=== PATIENT | female | born 1980 | race Caucasian/White ===

== ENCOUNTER 2018-07-11 21:50 | Emergency (ER) | payer SELFPAY ==
[2018-07-11] MEDS ORDERED: NICOTINE 21 MG/24 HR PATCH.TD24 TD ONE (22:37)
[2018-07-11] MEDS ORDERED: DIAZEPAM 5 MG TABLET PO PRN (22:38)
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
[2018-07-11 22:52] LABS: ABSOLUTE BASOPHILS # (AUTO) 0.1 10^3/uL (0.0-0.2); ABSOLUTE EOSINOPHILS # (AUTO) 0.1 10^3/uL (0.0-0.6); ABSOLUTE LYMPHOCYTES (AUTO) 2.5 10^3/uL (0.5-4.7); ABSOLUTE MONOCYTES (AUTO) 0.6 10^3/uL (0.1-1.4); ABSOLUTE NEUT (AUTO) 3.7 10^3/uL (1.7-8.2); BASOPHILS % (AUTO) 0.7 % (0-2); EOSINOPHILS % (AUTO) 1.9 % (0-6); HEMATOCRIT 40.9 % (36.0-47.0); HEMOGLOBIN 14.1 g/dL (12.0-15.5); LYMPHOCYTES % (AUTO) 35.9 % (13-45); MEAN CORPUSCULAR HEMOGLOBIN 28.7 pg (27.0-33.4); MEAN CORPUSCULAR HGB CONC 34.5 g/dL (32.0-36.0); MEAN CORPUSCULAR VOLUME 83 fl (80-97); MONOCYTES % (AUTO) 8.3 % (3-13); PLATELET COUNT 271 10^3/uL (150-450); RED BLOOD COUNT 4.91 10^6/uL (3.72-5.28); RED CELL DISTRIBUTION WIDTH 13.1 % (11.5-14.0); SEGMENTED NEUTROPHILS % (AUTO) 53.2 % (42-78); TOTAL CELLS COUNTED % (AUTO) 100 %; WHITE BLOOD COUNT 7.1 10^3/uL (4.0-10.5)
[2018-07-11 22:55] LABS: ALANINE AMINOTRANSFERASE 16 U/L (9-52); ALBUMIN 4.3 g/dL (3.5-5.0); ALKALINE PHOSPHATASE 62 U/L (38-126); ANION GAP 8 (5-19); ASPARTATE AMINO TRANSFERASE 18 U/L (14-36); BILIRUBIN,DIRECT 0.3 mg/dL (0.0-0.4); BILIRUBIN,TOTAL 0.4 mg/dL (0.2-1.3); BLOOD UREA NITROGEN 13 mg/dL (7-20); CALCIUM 9.5 mg/dL (8.4-10.2); CARBON DIOXIDE 26 mmol/L (22-30); CHLORIDE 109 mmol/L (98-107); GLUCOSE 87 mg/dL (75-110); POTASSIUM 4.3 mmol/L (3.6-5.0); TOTAL PROTEIN 6.9 g/dL (6.3-8.2)
[2018-07-11 22:56] LABS: ACETAMINOPHEN < 10 ug/mL (10-30); ALCOHOL < 10 mg/dL (NONE DETECTED); SALICYLATE < 1.0 mg/dL (2.0-20.0)
[2018-07-12] MEDS ORDERED: ACETAMINOPHEN 325 MG TABLET PO ONE (02:58)
[2018-07-12 03:12] LABS: APPEARANCE,URINE SLIGHTLY-CLOUDY; BILIRUBIN,URINE NEGATIVE (NEGATIVE); COLOR,URINE YELLOW; GLUCOSE, URINE NEGATIVE (NEGATIVE); KETONES,URINE NEGATIVE (NEGATIVE); LEUKOCYTE ESTERASE,URINE NEGATIVE (NEGATIVE); NITRITE,URINE NEGATIVE (NEGATIVE); PROTEIN,URINE NEGATIVE (NEGATIVE); URINE SPECIFIC GRAVITY 1.026
[2018-07-12 03:35] LABS: URINE AMPHETAMINES SCREEN NEGATIVE; URINE BARBITURATES SCREEN NEGATIVE; URINE BENZODIAZEPINES SCREEN UNCONFIRMED POSITIVE; URINE COCAINE SCREEN NEGATIVE; URINE MARIJUANA (THC) SCREEN UNCONFIRMED POSITIVE; URINE METHADONE SCREEN NEGATIVE; URINE PHENCYCLIDINE SCREEN NEGATIVE
--- NOTE | 2018-07-12 10:03 | ER Document Report ---
Doctor's Note Notes: 07/12/18 10:02 Rounds: Chart reviewed and patient interviewed. Patient says she is feeling depressed and suicidal. Lost her job, house, and attempted to cut her left wrist but was unable to because the blade was not sharp. Patient is not currently on any medications. She says at this time she just "want to go home and get some sleep". Vital signs are all normal. Lab studies were normal except for positive marijuana and drug testing. Patient appears to be medically stable for transfer or discharge. Tee Mir MD
[2018-07-12 14:17] VITALS: BP 116/72
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
--- NOTE | 2018-07-12 23:42 | EKG REPORT ---
SEVERITY:- NORMAL ECG - SINUS RHYTHM : Confirmed by: Kamala Fajardo MD 12-Jul-2018 23:41:53
== END 2018-07-12 17:40 | disposition home or self-care (01) ==
LOC: ER 21:50
DX: F32.2 Major depressive disorder, single episode, severe without psychotic features (principal); S60.812A Abrasion of left wrist, initial encounter; X78.8XXA Intentional self-harm by other sharp object, initial encounter; Z59.8 Other problems related to housing and economic circumstances; Z56.0 Unemployment, unspecified; R45.851 Suicidal ideations; Z88.5 Allergy status to narcotic agent; Z88.0 Allergy status to penicillin; F17.210 Nicotine dependence, cigarettes, uncomplicated
CPT/HCPCS: 36415; 80053; 80307; 81001; 81025; 85025; 93005; 93010; 99285

== ENCOUNTER 2018-07-28 14:25 | Emergency (ER) | payer SELFPAY ==
[2018-07-28 15:01] VITALS: BP 117/72
[2018-07-28 15:28] LABS: ABSOLUTE BASOPHILS # (AUTO) 0.1 10^3/uL (0.0-0.2); ABSOLUTE EOSINOPHILS # (AUTO) 0.1 10^3/uL (0.0-0.6); ABSOLUTE LYMPHOCYTES (AUTO) 1.6 10^3/uL (0.5-4.7); ABSOLUTE MONOCYTES (AUTO) 0.4 10^3/uL (0.1-1.4); ABSOLUTE NEUT (AUTO) 4.9 10^3/uL (1.7-8.2); BASOPHILS % (AUTO) 0.8 % (0-2); EOSINOPHILS % (AUTO) 1.2 % (0-6); HEMATOCRIT 40.4 % (36.0-47.0); HEMOGLOBIN 13.9 g/dL (12.0-15.5); MEAN CORPUSCULAR HEMOGLOBIN 28.6 pg (27.0-33.4); MEAN CORPUSCULAR HGB CONC 34.4 g/dL (32.0-36.0); MEAN CORPUSCULAR VOLUME 83 fl (80-97); MONOCYTES % (AUTO) 6.1 % (3-13); PLATELET COUNT 226 10^3/uL (150-450); RED BLOOD COUNT 4.87 10^6/uL (3.72-5.28); RED CELL DISTRIBUTION WIDTH 13.3 % (11.5-14.0); SEGMENTED NEUTROPHILS % (AUTO) 68.9 % (42-78); TOTAL CELLS COUNTED % (AUTO) 100 %; WHITE BLOOD COUNT 7.1 10^3/uL (4.0-10.5)
[2018-07-28 15:33] LABS: APPEARANCE,URINE CLOUDY; BILIRUBIN,URINE NEGATIVE (NEGATIVE); COLOR,URINE YELLOW; GLUCOSE, URINE NEGATIVE (NEGATIVE); KETONES,URINE NEGATIVE (NEGATIVE); LEUKOCYTE ESTERASE,URINE TRACE (NEGATIVE); NITRITE,URINE NEGATIVE (NEGATIVE); PROTEIN,URINE NEGATIVE (NEGATIVE); URINE SPECIFIC GRAVITY 1.012; UROBILINOGEN,URINE NEGATIVE mg/dL (<2.0)
[2018-07-28 15:46] LABS: ALANINE AMINOTRANSFERASE 23 U/L (9-52); ALBUMIN 3.9 g/dL (3.5-5.0); ALKALINE PHOSPHATASE 58 U/L (38-126); ANION GAP 5 (5-19); ASPARTATE AMINO TRANSFERASE 16 U/L (14-36); BILIRUBIN,DIRECT 0.2 mg/dL (0.0-0.4); BILIRUBIN,TOTAL 0.7 mg/dL (0.2-1.3); BLOOD UREA NITROGEN 9 mg/dL (7-20); CARBON DIOXIDE 26 mmol/L (22-30); CHLORIDE 108 mmol/L (98-107); GLUCOSE 85 mg/dL (75-110); POTASSIUM 4.1 mmol/L (3.6-5.0); SODIUM 139.4 mmol/L (137-145); TOTAL PROTEIN 6.5 g/dL (6.3-8.2)
[2018-07-28 15:49] LABS: ACETAMINOPHEN < 10 ug/mL (10-30); ALCOHOL < 10 mg/dL (NONE DETECTED); SALICYLATE < 1.0 mg/dL (2.0-20.0); URINE AMPHETAMINES SCREEN NEGATIVE; URINE BARBITURATES SCREEN NEGATIVE; URINE BENZODIAZEPINES SCREEN NEGATIVE; URINE COCAINE SCREEN NEGATIVE; URINE MARIJUANA (THC) SCREEN UNCONFIRMED POSITIVE; URINE METHADONE SCREEN NEGATIVE; URINE PHENCYCLIDINE SCREEN NEGATIVE
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
--- NOTE | 2018-07-28 23:14 | ER Document Report ---
Entered by JOSÉ FLORES SCRIBE 07/28/18 1449 Acting as scribe for:BLAKE DAVIS DO ED Psych Disorder / Suicide <ERIC CIFUENTES - Last Filed: 07/28/18 16:26> - General Information source: Patient TRAVEL OUTSIDE OF THE [place] IN LAST 30 DAYS: No <BLAKE DAVIS - Last Filed: 07/28/18 23:14> - General Stated Complaint: SI Time Seen by Provider: 07/28/18 14:36 Primary Care Provider: [facility] [Outside] - Follow up as needed [facility] [Outside] - 08/11/18 (You also have medication appointment at [facility] on 08/25/18.) Notes: 37 year old female that presents to the emergency department today with com plaints of "just snapping" prior to arrival. Patient states that over the last few weeks she has "lost her job, house, and power". Patient states she was diagnosed 2 weeks ago with bipolar disorder and depression and was started on a 7-day supply of medications but she does not have any money to buy medication refills. Patient also states that she is unable to get in to see the prescriber "Dr. Pickering" until August 25. Patient states she has only been getting around x3 hours of sleep a night. Patient states she "feels like there are bugs around her" although she denies visualizing them. Prior to arrival the patient cut his left upper extremity with a razor blade to "numb the pain". (JOSÉ FLORES) 37 year old female that presents to the emergency department today with complaints of "just snapping" prior to arrival. Patient states that over the last few weeks she has "lost her job, house, and power". Patient states she was diagnosed 2 weeks ago with bipolar disorder and depression and was started on a 7-day supply of medications but she does not have any money to buy medication refills. Patient also states that she is unable to get in to see the prescriber "Dr. Pickering" until August 25. Patient states she has only been getting around x3 hours of sleep a night. Patient states she "feels like there are bugs around her" although she denies visualizing them. Prior to arrival the patient cut her left upper extremity with a razor blade to "numb the pain". Denies suicidal homicidal ideation. States that cutting her arm did not change her pain. When asked if she felt better with the medication the patient states she is not sure if she felt better with it but she certainly feels worse since running out of it 7 days ago. (BLAKE DAVIS) - Related Data Allergies/Adverse Reactions: morphine Allergy (Verified 07/11/18 23:01) mushroom Allergy (Verified 07/12/18 12:25) Penicillins Allergy (Verified 07/11/18 23:01) tomato Allergy (Verified 07/12/18 12:25) Past Medical History - General Information source: Patient, [facility] Records - Social History Smoking Status: Current Every Day Smoker Cigarette use (# per day): Yes Chew tobacco use (# tins/day): No Frequency of alcohol use: Social Drug Abuse: Marijuana Lives with: Family Family History: Reviewed & Not Pertinent Renal/ Medical History: Reports: Hx Peritoneal Dialysis Psychiatric Medical History: Reports: Hx Depression <BLAKE DAVIS - Last Filed: 07/28/18 23:14> Review of Systems - Review of Systems Constitutional: No symptoms reported EENT: No symptoms reported Cardiovascular: No symptoms reported Respiratory: No symptoms reported Gastrointestinal: No symptoms reported Genitourinary: No symptoms reported Female Genitourinary: No symptoms reported Musculoskeletal: No symptoms reported Skin: No symptoms reported Hematologic/Lymphatic: No symptoms reported Neurological/Psychological: See HPI, Depression, Other - tearful -: Yes All other systems reviewed and negative <BLAKE DAVIS - Last Filed: 07/28/18 23:14> Physical Exam <BLAKE DAVIS - Last Filed: 07/28/18 23:14> - Vital signs Vitals: Temp Pulse Resp BP Pulse Ox 97.9 F 90 20 117/72 97 07/28/18 14:28 07/28/18 14:28 07/28/18 14:28 07/28/18 14:28 07/28/18 14:28 - Notes Notes: PHYSICAL EXAM GENERAL: Alert, interacts well. No acute distress. Tearful but consolable. HEAD: Normocephalic, atraumatic. EYES: Pupils equal, round, and reactive to light. Extraocular movements intact. ENT: Oral mucosa moist, tongue midline. NECK: Full range of motion. Supple. Trachea midline. LUNGS: Clear to auscultation bilaterally, no wheezes, rales, or rhonchi. No respiratory distress. HEART: Regular rate and rhythm. No murmurs, gallops, or rubs. ABDOMEN: Soft, non-tender. Non-distended. Bowel sounds present in all 4 q uadrants. No guarding, rigidity, or rebound. EXTREMITIES: Moves all 4 extremities spontaneously. No edema, radial and dorsalis pedis pulses 2/4 bilaterally. No cyanosis. NEUROLOGICAL: Alert and oriented x3. Normal speech. PSYCH: Tearful but consolable. Linear thought process. No evidence of halluc inations. SKIN: Warm, dry, normal turgor. Superficial horizontal linear lacerations to the left dorsal forearm, no active bleeding. (JOSÉ FLORES) PHYSICAL EXAM GENERAL: Alert, interacts well. No acute distress. Tearful but consolable. HEAD: Normocephalic, atraumatic. EYES: Pupils equal, round, and reactive to light. Extraocular movements intact. ENT: Oral mucosa moist, tongue midline. NECK: Full range of motion. Supple. Trachea midline. LUNGS: Clear to auscultation bilaterally, no wheezes, rales, or rhonchi. No respiratory distress. HEART: Regular rate and rhythm. No murmurs, gallops, or rubs. ABDOMEN: Soft, non-tender. Non-distended. Bowel sounds present in all 4 quadrants. No guarding, rigidity, or rebound. EXTREMITIES: Moves all 4 extremities spontaneously. No edema, radial and dorsalis pedis pulses 2/4 bilaterally. No cyanosis. NEUROLOGICAL: Alert and oriented x3. Normal speech. PSYCH: Tearful but consolable. Linear thought process. No evidence of h allucinations. SKIN: Warm, dry, normal turgor. Superficial horizontal linear lacerations to the left dorsal forearm, no active bleeding. Well approximated. (BLAKE DAVIS) Course - Laboratory Result Diagrams: 07/28/18 15:03 07/28/18 15:03 <ERIC CIFUENTES - Last Filed: 07/28/18 16:26> - Laboratory Result Diagrams: 07/28/18 15:03 07/28/18 15:03 <BLAKE DAVIS - Last Filed: 07/28/18 23:14> - Re-evaluation Re-evalutation: 07/28/18 16:56 CBC unremarkable, CMP grossly unremarkable, test negative, urinalysis shows trace leukocyte esterase but 13 squamous epithelial cells indicating likely contamination, urine drug screen shows marijuana which the patient admits to using is otherwise undetectable. Patient is not actually suicidal at this time. Patient is simply lacking access to her medications, patient is quite comfortable with the idea of discharged home if I can give her a prescription for 1 month supply of medications until she can get into see her psychiatrist on the . I am agreeable to this plan as well. Patient is also given resources regarding IFS as an outpatient. (BLAKE DAVIS) - Vital Signs Vital signs: Temp Pulse Resp BP Pulse Ox 97.9 F 90 20 117/72 97 07/28/18 14:28 07/28/18 14:28 07/28/18 14:28 07/28/18 14:28 07/28/18 14:28 - Laboratory Laboratory results interpreted by me: 07/28/18 07/28/18 15:03 15:03 Chloride 108 H Ur Leukocyte Esterase TRACE H Salicylates < 1.0 L Acetaminophen < 10 L - EKG Interpretation by Me Additional EKG results interpreted by me: 07/28/18 16:57 EKG shows sinus rhythm at a rate of 80, normal axis, normal intervals, no ST segment elevations or depressions, there are T wave and inversions in lead III, more biphasic T wave per my interpretation. (BLAKE DAVIS) Discharge <ERIC CIFUENTES - Last Filed: 07/28/18 16:26> <BLAKE DAVIS - Last Filed: 07/28/18 23:14> - Discharge Clinical Impression: Self-injurious behavior, Has run out of medications, History of bipolar disorder Condition: Stable Disposition: HOME, SELF-CARE Additional Instructions: You have been evaluated by both medical and behavioral health providers while in the emergency department. You have been cleared from both acute medical and psychiatric services. You reported being off medication for 7 days. You are being provided a 30 day prescription for these medications to last you until your appointment at [facility]. You should take medications as prescribed and attend both your therapy and medication management appointment. Bipolar Disorder Bipolar disorder is also called manic-depressive disorder. Depression a lternates with brain hyperactivity called kavya. Each phase lasts from several days to a few weeks. We don't know exactly what causes bipolar disorder, but it's treatable. During the "manic phase," you may feel elated and energetic. You may have racing thoughts, rapid speech, increased activity, and grandiose ideas. During this time, you may not realize how poor your judgement is. Inappropriate spending, drug abuse, excessive alcohol use, marriage problems, and irresponsible sexual behavior are common during the manic phase. During the "depressive phase," you might feel depressed, guilty, worthless, fatigued, and unable to concentrate. You might have thoughts of suicide. Good treatments are available for bipolar disorder. [place] is a classic drug for bipolar disorder, and is still often useful. If the manic phase is very mild, an antidepressant alone can be prescribed. If the manic phase is very severe, an antipsychotic medicine (such as Haldol) may be needed. The treatment must be matched to your symptoms, so it's important to work closely with your psychiatric care provider. Contact your physician, the hospital emergency center, crisis line, or your counsellor if you are losing control or having self-destructive thoughts. SUICIDAL IDEATION: (self injurious behavior can be similar in terms of thoughts and actions with no intent to kill self) Suicidal ideation is a common medical term for thoughts about suicide, which may be as detailed as a formulated plan, without the suicidal act itself. Although most people who undergo suicidal ideation do not commit suicide, some go on to make suicide attempts. The range of suicidal ideation varies greatly from fleeting to detailed planning, role playing, and unsuccessful attempts. While thoughts about suicide are common, most people do not carry out serious actions to commit suicide. Based upon your evaluation and discussion with you, we do not believe you are currently at risk to act upon your thoughts of suicide. You have agreed to return to the Emergency Department, at any time, if you feel inclined to act upon your suicidal thoughts. FOLLOW-UP CARE: You are being provided a 30 day prescription for your medications which will last you until your medication management appointment at [facility]. Confirmed with [facility] your appointment on 08/11/18 for therapy and 08/25/18 for medication management. You have been provided the [facility] Mobile Crisis number for crisis. talk therapy and linkage to other supports/services. If you experience worsening or a significant change in your symptoms, notify the physician immediately, utilize mobile crisis or return to the Emergency Department at any time for re-evaluation. Prescriptions: Prazosin HCl [Minipress] 1 mg PO QHS #30 capsule Aripiprazole [Abilify 10 mg Tablet] 10 mg PO DAILY #30 tablet Referrals: [facility] [Outside] - Follow up as needed [facility] [Outside] - 08/11/18 (You also have medication appointment at [facility] on 08/25/18.) I personally performed the services described in the documentation, reviewed and edited the documentation which was dictated to the scribe in my presence, and it accurately records my words and actions.
--- NOTE | 2018-07-28 23:26 | EKG REPORT ---
SEVERITY:- NORMAL ECG - SINUS RHYTHM : Confirmed by: Kamala Fajardo MD 28-Jul-2018 23:26:25
== END 2018-07-28 17:56 | disposition home or self-care (01) ==
LOC: ER 14:25
DX: F31.9 Bipolar disorder, unspecified (principal); T43.596A Underdosing of other antipsychotics and neuroleptics, initial encounter; Z91.120 Patient's intentional underdosing of medication regimen due to financial hardship; Z91.14 Patient's other noncompliance with medication regimen; S51.812A Laceration without foreign body of left forearm, initial encounter; X78.8XXA Intentional self-harm by other sharp object, initial encounter; F17.210 Nicotine dependence, cigarettes, uncomplicated; F12.10 Cannabis abuse, uncomplicated; Z56.0 Unemployment, unspecified; Z88.5 Allergy status to narcotic agent; Z91.018 Allergy to other foods; Z88.0 Allergy status to penicillin
CPT/HCPCS: 36415; 80053; 80307; 81001; 84703; 85025; 93005; 93010; 99285